=== PATIENT | male | born 1970 | race African-American/Black ===

== ENCOUNTER 2021-05-19 19:00 | Inpatient (IN) | payer OTHER ==
[~2021-05-19] VITALS: Ht 175.3 cm; Wt 89.4 kg
[2021-05-19 19:00] VITALS: BP 126/78
[2021-05-19 19:10] VITALS: BP 139/71
[2021-05-19] MEDS ORDERED: HYDR-2145 PO (19:43)
[2021-05-19] MEDS ORDERED: AMLO-187 PO (19:43)
[2021-05-19] MEDS ORDERED: guaiFENesin DM 200MG/20MG 10 ML SYRUP PO PRN (20:00)
[2021-05-19] MEDS ORDERED: ACETAMINOPHEN 325 MG TABLET. PO PRN (20:00)
[2021-05-19 21:01] LABS: CALCIUM 8.2 mg/dL (8.5-10.1); CREATININE 1.9 mg/dL (0.7-1.3); GFR 37.9; POTASSIUM 4.3 mmol/L (3.5-5.1)
[2021-05-19 21:07] LABS: ALBUMIN 2.8 g/dL (3.4-5.0); ALBUMIN/GLOBULIN RATIO 0.6 (1.0-1.7); TOTAL BILIRUBIN 0.4 mg/dL (0.2-1.0); TOTAL PROTEIN 7.2 g/dL (6.4-8.2)
[2021-05-19] MEDS ORDERED: IV NORMAL SALINE 1000ML BAG 1,000 ML IV SCH (21:15)
[2021-05-19] MEDS: BENZONATATE 100 MG CAPSULE. PO SCH (21:44)
[2021-05-19] MEDS ORDERED: REMDESIVIR LOAD in IV NORMAL SALINE 250ML TV IV ONE (22:00)
[2021-05-19] MEDS: HEPARIN for SUB-Q USE 5,000 UNIT/ML VIAL. SQ SCH (22:30)
[2021-05-19 23:00] VITALS: BP 122/75
[2021-05-20 03:00] VITALS: BP 131/79
[2021-05-20] MEDS: HEPARIN for SUB-Q USE 5,000 UNIT/ML VIAL. SQ SCH ×3 (05:40→20:48)
[2021-05-20 07:00] VITALS: BP 139/83
[2021-05-20 07:34] LABS: BASO % 0 % (0-3); EOS % 0 % (0-3); HEMATOCRIT 41.3 % (39.0-53.0); HEMOGLOBIN 13.5 g/dL (13.0-17.5); LYMPH # 0.6 x10^3/uL (1.0-4.8); LYMPH % 13 % (24-48); MEAN CORPUSCULAR HEMOGLOBIN 28 pg (25-35); MEAN CORPUSCULAR HGB CONC 33 g/dL (31-37); MEAN CORPUSCULAR VOLUME 85 fL (79-100); MONO # 0.9 x10^3/uL (0.0-1.1); MONO % 19 % (0-9); NEUT # 3.4 x10^3/uL (1.8-7.7); NEUT % 69 % (31-73); PLATELET COUNT 221 x10^3/uL (140-400); RED BLOOD COUNT 4.84 x10^6/uL (4.30-5.70); RED CELL DISTRIBUTION WIDTH 13.8 % (11.5-14.5); WHITE BLOOD COUNT 4.9 x10^3/uL (4.0-11.0)
--- NOTE | 2021-05-20 07:54 | PDOC1 ---
History and Physical Date of Admission Date of Admission DATE: 05/20/21 TIME: 07:52 Identification/Chief Complaint Chief Complaint Shortness of breath Source Source: Patient History of Present Illness History of Present Illness Mr Yadav is a 51-year-old male w/ PMHx HTN who presented to [facility] in [place], [place] for progressive shortness of breath, cough and dyspnea on exertion. He tested positive for Covid 19 on 05/11/2021 after experiencing a cough and shortness of breath. He works for [employer], does not know about any known exposures. Symptoms were as above and for 7 days was staying at home on quarantine but his became concerned due to worsening dyspnea and feelings of weakness and malaise with loss of appetite. Vitals obtained concerning for hypoxia 73% on room air, tachypnea and tachycardia Supplemental oxygen provided, patient continuing to require 6 L oxygen via nasal cannula to maintain saturations greater than 90% IV antibiotics and IV dexamethasone administered WBC 6.6, Hb 14.3, platelets 207, NA 140, K4, BUN 33, CR 2.1, glucose 102, calcium 8.7, lactate 1.2, bilirubin 0.6, AST 39, ALT 27, alkaline phosphatase 51, troponin 0, albumin 3.4 chest radiograph with hazy and patchy airspace disease throughout bilateral lungs, suspicious for viral or atypical pneumonia. CTPA had suboptimal contrast bolus, no PE noted. Bilateral parenchymal opacities as well as mediastinal and hilar lymphadenopathy. EKG ordered and interpreted by myself at 1118 hrs. as sinus rhythm at 98 bpm, unremarkable intervals, no axis deviation, T wave inversion noted in lead aVF otherwise no concerning findings, no STEMI Attempts were made to admit patient to [facility] for ICU status but this request was declined by hospitalist. Transferred to [facility] for further care. Past Medical History Cardiovascular: HTN Past Surgical History Past Surgical History: No pertinent history Family History Family History: Hypertension Social History Smoke: No ALCOHOL: none Drugs: None Current Medications Current Medications Current Medications Acetaminophen (Tylenol) 650 mg PRN Q6HRS PRN PO MILD PAIN / TEMP > 100.3'F; Start 05/19/21 at 20:00 Ondansetron HCl (Zofran) 4 mg PRN Q4HRS PRN IVP NAUSEA/VOMITING; Start 05/19/21 at 20:00 Zinc Sulfate (Orazinc) 220 mg DAILY PO ; Start 05/20/21 at 09:00 Thiamine Mononitrate (Vitamin B-1) 100 mg DAILY PO ; Start 05/20/21 at 09:00 Ascorbic Acid (Vitamin C) 1,000 mg DAILY PO ; Start 05/20/21 at 09:00 Guaifenesin (Robitussin Dm) 10 ml PRN Q4HRS PRN PO COUGH; Start 05/19/21 at 20:00 Benzonatate (Tessalon Perle) 100 mg [id number] PO Last administered on 05/19/21at 21:44; Start 05/19/21 at 21:00 Remdesivir 200 mg/ Sodium Chloride 210 ml @ 210 mls/hr 1X ONCE IV Last administered on 05/19/21at 21:43; Start 05/19/21 at 22:00; Stop 05/19/21 at 22:59; Status DC Remdesivir 100 mg/ Sodium Chloride 230 ml @ 460 mls/hr Q24H IV ; Start 05/20/21 at 22:00; Stop 05/23/21 at 22:29 Amlodipine Besylate (Norvasc) 10 mg DAILY PO ; Start 05/20/21 at 09:00 Sodium Chloride 1,000 ml @ 100 mls/hr Q10H IV Last administered on 05/19/21at 21:44; Start 05/19/21 at 21:15; Stop 05/20/21 at 07:14; Status DC Heparin Sodium (Porcine) (Heparin Sodium) 5,000 unit Q8HRS SQ Last administered on 05/20/21at 05:40; Start 05/19/21 at 22:00 Active Scripts Active Reported Hydrochlorothiazide Tablet (Hydrochlorothiazide) 25 Mg Tablet 25 Mg PO DAILY Amlodipine Besylate 10 Mg Tablet 10 Mg PO DAILY Allergies Allergies: Coded Allergies: No Known Drug Allergies (Unverified , 05/19/21) ROS General: YES: Fatigue, Malaise; No: Chills, Night Sweats, Appetite, Other PSYCHOLOGICAL ROS: No: Anxiety, Behavioral Disorder, Concentration difficultie, Decreased libido, Depression, Disorientation, Hallucinations, Hostility, Irritablity, Memory difficulties, Mood Swings, Obsessive thoughts, Physical abuse, Sexual abuse, Sleep disturbances, Suicidal ideation, Other Eyes: No Blurry vision, No Decreased vision, No Double vision, No Dry eyes, No Excessive tearing, No Eye Pain, No Itchy Eyes, No Loss of vision, No Photophobia, No Scotomata, No Uses contacts, No Uses glasses, No Other HEENT: No: Heacaches, Visual Changes, Hearing change, Nasal congestion, Nasal discharge, Oral lesions, Sinus pain, Sore Throat, Epistaxis, Sneezing, Snoring, Tinnitus, Vertigo, Vocal changes, Other ALLERGY AND IMMUNOLOGY: No: Hives, Insect Bite Sensitivity, Itchy/Watery Eyes, Nasal Congestion, Post Nasal Drip, Seasonal Allergies, Other Hematological and Lymphatic: No: Bleeding Problems, Blood Clots, Blood Transfusions, Brusing, Night Sweats, Pallor, Swollen Lymph Nodes, Other ENDOCRINE: No: Breast Changes, Galactorrhea, Hair Pattern Changes, Hot Flashes, Malaise/lethargy, Mood Swings, Palpitations, Polydipsia/polyuria, Skin Changes, Temperature Intolerance, Unexpected Weight Changes, Other Breast: No New/Changing Breast Lumps, No Nipple changes, No Nipple discharge, No Other Respiratory: YES: Cough, Shortness of breath, SOB with excertion; No: Hemoptysis, Orthopnea, Pleuritic Pain, Sputum Changes, Stridor, Tachypnea, Wheezing, Other Cardiovascular: No Chest Pain, No Palpitations, No Orthopnea, No Paroxysmal Noc. Dyspnea, No Edema, No Lt Headedness, No Other Gastrointestinal: Yes Diarrhea; No Nausea, No Vomiting, No Abdominal Pain, No Constipation, No Melena, No Hematochezia, No Other Genitourinary: No Dysuria, No Frequency, No Incontinence, No Hematuria, No Retention, No Discharge, No Urgency, No Pain, No Flank Pain, No Other, No , No , No , No , No , No , No Musculoskeletal: No Gait Disturbance, No Joint Pain, No Joint Stiffness, No Joint Swelling, No Muscle Pain, No Muscular Weakness, No Pain In:, No Swelling In:, No Other Neurological: No Behavorial Changes, No Bowel/Bladder ControlChng, No Confusion, No Dizziness, No Gait Disturbance, No Headaches, No Impaired Coord/balance, No Memory Loss, No Numbness/Tingling, No Seizures, No Speech Problems, No Tremors, No Visual Changes, No Weakness, No Other Skin: No Dry Skin, No Eczema, No Hair Changes, No Lumps, No Mole Changes, No Mottling, No Nail Changes, No Pruritus, No Rash, No Skin Lesion Changes, No Other, No Acne Physical Exam General: Alert, Oriented X3, Cooperative, mild distress HEENT: Atraumatic, PERRLA, EOMI, Mucous membr. moist/pink Lungs: Clear to auscultation, Other Heart: S1S2, RRR, no thrills, no rubs, no gallops, no murmurs Abdomen: Normal bowel sounds, Soft, No tenderness, No hepatosplenomegaly, No masses Rectal Exam: not examined Extremities: No clubbing, No cyanosis, No edema, Normal pulses, No tenderness/swelling Skin: No rashes, No breakdown, No significant lesion Neuro: Normal gait, Normal speech, Strength at 5/5 X4 ext, Normal tone, Sensation intact, Cranial nerves 3-12 NL, Reflexes 2+ Psych/Mental Status: Mental status NL, Mood NL Vitals Vitals Vital Signs Date Time Temp Pulse Resp B/P (MAP) Pulse Ox O2 Delivery O2 Flow Rate FiO2 05/20/21 03:00 97.9 84 16 131/79 (96) 93 97.9 05/19/21 20:00 Nasal Cannula 6.0 Labs Labs Laboratory Tests Test 05/19/21 20:30 05/20/21 05:45 Sodium Level 139 mmol/L (136-145) Potassium Level 4.3 mmol/L (3.5-5.1) Chloride Level 102 mmol/L (98-107) Carbon Dioxide Level 30 mmol/L (21-32) Anion Gap 7 (6-14) Blood Urea Nitrogen 24 mg/dL (8-26) Creatinine 1.9 mg/dL (0.7-1.3) Estimated GFR (Cockcroft-Gault) 37.9 BUN/Creatinine Ratio 13 (6-20) Glucose Level 145 mg/dL (70-99) Calcium Level 8.2 mg/dL (8.5-10.1) Total Bilirubin 0.4 mg/dL (0.2-1.0) Aspartate Amino Transf (AST/SGOT) 35 U/L (15-37) Alanine Aminotransferase (ALT/SGPT) 26 U/L (16-63) Alkaline Phosphatase 48 U/L (46-116) C-Reactive Protein, Quantitative 177.5 mg/L (0-3.3) Total Protein 7.2 g/dL (6.4-8.2) Albumin 2.8 g/dL (3.4-5.0) Albumin/Globulin Ratio 0.6 (1.0-1.7) White Blood Count 4.9 x10^3/uL (4.0-11.0) Red Blood Count 4.84 x10^6/uL (4.30-5.70) Hemoglobin 13.5 g/dL (13.0-17.5) Hematocrit 41.3 % (39.0-53.0) Mean Corpuscular Volume 85 fL (79-100) Mean Corpuscular Hemoglobin 28 pg (25-35) Mean Corpuscular Hemoglobin Concent 33 g/dL (31-37) Red Cell Distribution Width 13.8 % (11.5-14.5) Platelet Count 221 x10^3/uL (140-400) Neutrophils (%) (Auto) 69 % (31-73) Lymphocytes (%) (Auto) 13 % (24-48) Monocytes (%) (Auto) 19 % (0-9) Eosinophils (%) (Auto) 0 % (0-3) Basophils (%) (Auto) 0 % (0-3) Neutrophils # (Auto) 3.4 x10^3/uL (1.8-7.7) Lymphocytes # (Auto) 0.6 x10^3/uL (1.0-4.8) Monocytes # (Auto) 0.9 x10^3/uL (0.0-1.1) Eosinophils # (Auto) 0.0 x10^3/uL (0.0-0.7) Basophils # (Auto) 0.0 x10^3/uL (0.0-0.2) Laboratory Tests Test 05/19/21 20:30 05/20/21 05:45 Sodium Level 139 mmol/L (136-145) Potassium Level 4.3 mmol/L (3.5-5.1) Chloride Level 102 mmol/L (98-107) Carbon Dioxide Level 30 mmol/L (21-32) Anion Gap 7 (6-14) Blood Urea Nitrogen 24 mg/dL (8-26) Creatinine 1.9 mg/dL (0.7-1.3) Estimated GFR (Cockcroft-Gault) 37.9 BUN/Creatinine Ratio 13 (6-20) Glucose Level 145 mg/dL (70-99) Calcium Level 8.2 mg/dL (8.5-10.1) Total Bilirubin 0.4 mg/dL (0.2-1.0) Aspartate Amino Transf (AST/SGOT) 35 U/L (15-37) Alanine Aminotransferase (ALT/SGPT) 26 U/L (16-63) Alkaline Phosphatase 48 U/L (46-116) C-Reactive Protein, Quantitative 177.5 mg/L (0-3.3) Total Protein 7.2 g/dL (6.4-8.2) Albumin 2.8 g/dL (3.4-5.0) Albumin/Globulin Ratio 0.6 (1.0-1.7) White Blood Count 4.9 x10^3/uL (4.0-11.0) Red Blood Count 4.84 x10^6/uL (4.30-5.70) Hemoglobin 13.5 g/dL (13.0-17.5) Hematocrit 41.3 % (39.0-53.0) Mean Corpuscular Volume 85 fL (79-100) Mean Corpuscular Hemoglobin 28 pg (25-35) Mean Corpuscular Hemoglobin Concent 33 g/dL (31-37) Red Cell Distribution Width 13.8 % (11.5-14.5) Platelet Count 221 x10^3/uL (140-400) Neutrophils (%) (Auto) 69 % (31-73) Lymphocytes (%) (Auto) 13 % (24-48) Monocytes (%) (Auto) 19 % (0-9) Eosinophils (%) (Auto) 0 % (0-3) Basophils (%) (Auto) 0 % (0-3) Neutrophils # (Auto) 3.4 x10^3/uL (1.8-7.7) Lymphocytes # (Auto) 0.6 x10^3/uL (1.0-4.8) Monocytes # (Auto) 0.9 x10^3/uL (0.0-1.1) Eosinophils # (Auto) 0.0 x10^3/uL (0.0-0.7) Basophils # (Auto) 0.0 x10^3/uL (0.0-0.2) Images Images Chest radiograph: Cardiomediastinal Silhouette: Prominent cardiac silhouette, likely accentuated by AP technique and low lung volumes. Lungs and Pleura: Bilateral hazy and patchy opacities throughout the lungs. No evidence of pleural effusion or pneumothorax. Bones and Soft Tissues: No acute osseous abnormality. IMPRESSION: Hazy and patchy airspace disease throughout bilateral lungs, suspicious for viral or atypical pneumonia. CT chest with contrast - pulmonary embolus protocol CHEST: Diagnostic quality: Suboptimal contrast bolus. Pulmonary emboli: No pulmonary emboli to the level of the segmental branches. More peripheral vessels are not well assessed. Right heart strain: None Pulmonary arteries: Normal in caliber. Heart is not enlarged. No pericardial effusion. No pleural effusion. No pneumothorax. Bilateral parenchymal airspace opacities are seen including solid and groundglass opacities particularly peripherally. Enlarged mediastinal and hilar lymph nodes are seen. No axillary lymphadenopathy. Visualized Upper abdomen: Unremarkable Bones: No aggressive osseous lesion is seen. IMPRESSION: 1. Suboptimal contrast bolus. Within these constraints, no pulmonary embolus to the level of the proximal subsegmental branches. More peripheral vessels are not well assessed. 2. Bilateral parenchymal opacities likely from infectious/inflammatory process including viral pneumonia. Imaging follow-up to resolution is recommended to exclude underlying mass. 3. Mediastinal and hilar lymphadenopathy is likely reactive. Recommend close attention on follow-up. VTE Prophylaxis Ordered VTE Prophylaxis Devices: Yes VTE Pharmacological Prophylaxi: Yes Assessment/Plan Assessment/Plan A/P: COVID-19 - Severe case, on remdesivir, decadron, O2 supportive care. Check CRP, LFTs for baricitinib or tocilizumab criteria (no tocilizumab available currently) Acute respiratory failure with hypoxia - due to COVID 19, treatment as above. add IS and albuterol MDI AMEYA - likely vasomotor nephropathy from COVID 19 SIRS - HR and RR elevated consistent with sepsis due to COVID 19, given fluids and antivirals HTN - hold HCTZ for AMEYA, cont amlodipine FEN - General diet PPX - lovenox FULL CODE Dispo - inpatient Justifications for Admission General Conditions Poss Metaboilic Acidosis?: Yes Justification for admission: Patient has tachycardia (> 100 beats per minute) or hypotension (SBP < 90 mm Hg) leading to inadequate systemic perfusion as indicated by metabolic acidosis with arterial pH of less than 7.35. Other Justification DAYSI JORDAN MD May 20, 2021 07:54
[2021-05-20 08:06] LABS: ALBUMIN 2.6 g/dL (3.4-5.0); ALBUMIN/GLOBULIN RATIO 0.6 (1.0-1.7); CREATININE 1.6 mg/dL (0.7-1.3); GFR 55.9; POTASSIUM 4.3 mmol/L (3.5-5.1); TOTAL BILIRUBIN 0.4 mg/dL (0.2-1.0); TOTAL PROTEIN 6.9 g/dL (6.4-8.2)
[2021-05-20] MEDS: BENZONATATE 100 MG CAPSULE. PO SCH ×3 (09:26→20:48)
[2021-05-20] MEDS: ZINC SULFATE 220 MG CAPSULE. PO SCH (09:26)
[2021-05-20] MEDS: THIAMINE 100 MG TABLET. PO SCH (09:26)
[2021-05-20] MEDS: ASCORBIC ACID 1,000 MG TABLET PO SCH (09:26)
[2021-05-20 09:56] LABS: % EOS 1 % (0-5); % LYMPHS 10 % (24-48); % MONOS 17 % (0-10); % SEGS 72 % (35-66)
[2021-05-20 09:57] LABS: PLT ESTIMATE ADEQUATE (ADEQUATE)
[2021-05-20 11:00] VITALS: BP 141/77
[2021-05-20] MEDS: DEXAMETHASONE SOD PHOS 4 MG/ML VIAL IVP SCH (14:28)
[2021-05-20 15:00] VITALS: BP 135/79
[2021-05-20] MEDS ORDERED: ALBUTEROL SULFATE 8GM INHALER. INH PRN ×2 (15:30)
[2021-05-20 20:08] VITALS: BP 131/79
[2021-05-20] MEDS: REMDESIVIR 100mg in NORMAL SALINE 250ML X 4 DAYS IV SCH (20:47)
[2021-05-20] MEDS: ONDANSETRON PF 4 MG/2 ML VIAL. IVP PRN (21:56)
[2021-05-20 23:20] VITALS: BP 129/79
[2021-05-21 03:55] VITALS: BP_SYST 127
[2021-05-21 05:56] LABS: HEMOGLOBIN A1C 6.3 % (4.8-5.6)
[2021-05-21] MEDS: HEPARIN for SUB-Q USE 5,000 UNIT/ML VIAL. SQ SCH ×3 (06:01→21:30)
[2021-05-21 07:00] VITALS: BP 125/79
[2021-05-21 08:03] LABS: BASO % 0 % (0-3); EOS % 0 % (0-3); HEMATOCRIT 43.3 % (39.0-53.0); HEMOGLOBIN 14.2 g/dL (13.0-17.5); LYMPH # 0.8 x10^3/uL (1.0-4.8); LYMPH % 12 % (24-48); MEAN CORPUSCULAR HEMOGLOBIN 28 pg (25-35); MEAN CORPUSCULAR HGB CONC 33 g/dL (31-37); MEAN CORPUSCULAR VOLUME 85 fL (79-100); MONO # 1.1 x10^3/uL (0.0-1.1); MONO % 17 % (0-9); NEUT # 4.7 x10^3/uL (1.8-7.7); NEUT % 72 % (31-73); PLATELET COUNT 285 x10^3/uL (140-400); RED BLOOD COUNT 5.09 x10^6/uL (4.30-5.70); RED CELL DISTRIBUTION WIDTH 13.7 % (11.5-14.5); WHITE BLOOD COUNT 6.6 x10^3/uL (4.0-11.0)
--- NOTE | 2021-05-21 08:17 | PDOC ---
[employer] PROGRESS NOTE Date of Service DOS: DATE: 05/21/21 TIME: 08:06 Chief Complaint Chief Complaint A/P: COVID-19 - Severe case, on remdesivir, decadron, O2 supportive care. Check CRP, LFTs for baricitinib or tocilizumab criteria (no tocilizumab available currently) Acute respiratory failure with hypoxia - due to COVID 19, treatment as above. add IS and albuterol MDI AMEYA - likely vasomotor nephropathy from COVID 19 SIRS - HR and RR elevated consistent with sepsis due to COVID 19, given fluids and antivirals HTN - hold HCTZ for AMEYA, cont amlodipine FEN - General diet PPX - lovenox FULL CODE Dispo - inpatient History of Present Illness History of Present Illness Mr Yadav is a 51-year-old male w/ PMHx HTN who presented to [facility] in [place], [place] for progressive shortness of breath, cough and dyspnea on exertion. He tested positive for Covid 19 on 05/11/2021 after experiencing a coug h and shortness of breath. He works for [employer], does not know about any known exposures. Symptoms were as above and for 7 days was staying at home on quarantine but his became concerned due to worsening dyspnea and feelings of weakness and malaise with loss of appetite. Vitals obtained concerning for hypoxia 73% on room air, tachypnea and tachycardia Supplemental oxygen provided, patient continuing to require 6 L oxygen via nasal cannula to maintain saturations greater than 90% IV antibiotics and IV dexamethasone administered WBC 6.6, Hb 14.3, platelets 207, NA 140, K4, BUN 33, CR 2.1, glucose 102, calcium 8.7, lactate 1.2, bilirubin 0.6, AST 39, ALT 27, alkaline phosphatase 51, troponin 0, albumin 3.4 chest radiograph with hazy and patchy airspace disease throughout bilateral lungs, suspicious for viral or atypical pneumonia. CTPA had suboptimal contrast bolus, no PE noted. Bilateral parenchymal opacities as well as mediastinal and hilar lymphadenopathy. EKG ordered and interpreted by myself at 1118 hrs. as sinus rhythm at 98 bpm, unremarkable intervals, no axis deviation, T wave inversion noted in lead aVF otherwise no concerning findings, no STEMI Attempts were made to admit patient to [facility] for ICU status but this request was declined by hospitalist. Transferred to [facility] for further care. Afebrile overnight. Creatinine improved to 1.6. Symptomatically having diarrhea and some nausea otherwise has a good appetite. HbA1c returned 6.3. O2 requirements increased to 9 L/min with O2 saturations 91%. He strenuously requesting to leave advised the his O2 needs are far too high for this to be accommodated. With creatinine and transaminase elevation he is not a candidate for Tocilizumab or baricitinib. We will continue daily labs and wean O2 as tolerated. Continue standard COVID-19 treatment with Decadron and remdesivir. Vitals/I&O Vitals/I&O: Vital Signs Date Time Temp Pulse Resp B/P (MAP) Pulse Ox O2 Delivery O2 Flow Rate FiO2 05/21/21 07:00 98.2 77 20 125/79 (94) 94 Nasal Cannula 10.0 98.2 I & O 05/20/21 05/20/21 05/21/21 15:00 23:00 07:00 Intake Total 240 ml 320 ml 180 ml Balance 240 ml 320 ml 180 ml Physical Exam General: Alert, Oriented X3, Cooperative, mild distress Abdomen: Normal bowel sounds, Soft, No tenderness, No hepatosplenomegaly, No masses Extremities: No clubbing, No cyanosis, No edema, Normal pulses, No tenderness/swelling Skin: No rashes, No breakdown, No significant lesion Comment Review of Relevant I have reviewed the following items gisela (where applicable) has been applied. Medications: Current Medications Medications (Trade) Dose Ordered Sig/Joy Route PRN Reason Start Time Stop Time Status Last Admin Dose Admin Zinc Sulfate (Orazinc) 220 mg DAILY PO 05/20/21 09:00 05/20/21 09:26 Thiamine Mononitrate (Vitamin B-1) 100 mg DAILY PO 05/20/21 09:00 05/20/21 09:26 Ascorbic Acid (Vitamin C) 1,000 mg DAILY PO 05/20/21 09:00 05/20/21 09:26 Remdesivir 100 mg/ Sodium Chloride 230 ml @ 460 mls/hr Q24H IV 05/20/21 22:00 05/23/21 22:29 05/20/21 20:47 Amlodipine Besylate (Norvasc) 10 mg DAILY PO 05/20/21 09:00 05/20/21 09:26 Dexamethasone Sodium Phosphate (Decadron) 6 mg DAILY IVP 05/20/21 14:00 05/29/21 13:59 05/20/21 14:28 Justifications for Admission General Conditions Poss Metaboilic Acidosis?: Yes Justification for admission: Patient has tachycardia (> 100 beats per minute) or hypotension (SBP < 90 mm Hg) leading to inadequate systemic perfusion as indicated by metabolic acidosis with arterial pH of less than 7.35. Other Justification DAYSI JORDAN MD May 21, 2021 08:17
[2021-05-21 08:18] LABS: ALBUMIN 2.6 g/dL (3.4-5.0); ALBUMIN/GLOBULIN RATIO 0.6 (1.0-1.7); CALCIUM 8.4 mg/dL (8.5-10.1); CREATININE 1.5 mg/dL (0.7-1.3); GFR 60.2; POTASSIUM 4.6 mmol/L (3.5-5.1); TOTAL BILIRUBIN 0.4 mg/dL (0.2-1.0)
[2021-05-21] MEDS: THIAMINE 100 MG TABLET. PO SCH (09:36)
[2021-05-21] MEDS: ASCORBIC ACID 1,000 MG TABLET PO SCH (09:36)
[2021-05-21] MEDS: ZINC SULFATE 220 MG CAPSULE. PO SCH (09:37)
[2021-05-21] MEDS: BENZONATATE 100 MG CAPSULE. PO SCH ×3 (09:38→21:33)
[2021-05-21] MEDS: DEXAMETHASONE SOD PHOS 4 MG/ML VIAL IVP SCH (09:38)
[2021-05-21 11:00] VITALS: BP 144/54
[2021-05-21] MEDS: ONDANSETRON PF 4 MG/2 ML VIAL. IVP PRN ×2 (13:32→21:32)
[2021-05-21 15:32] VITALS: BP 146/85
[2021-05-21 19:00] VITALS: BP 134/84
[2021-05-21] MEDS: REMDESIVIR 100mg in NORMAL SALINE 250ML X 4 DAYS IV SCH (21:33)
[2021-05-21 23:20] VITALS: BP 129/82
[2021-05-22 03:11] VITALS: BP 138/82
[2021-05-22] MEDS: HEPARIN for SUB-Q USE 5,000 UNIT/ML VIAL. SQ SCH ×3 (05:47→21:01)
[2021-05-22] MEDS: ONDANSETRON PF 4 MG/2 ML VIAL. IVP PRN (05:48)
[2021-05-22 06:39] LABS: ALBUMIN 2.7 g/dL (3.4-5.0); ALBUMIN/GLOBULIN RATIO 0.6 (1.0-1.7); CALCIUM 8.7 mg/dL (8.5-10.1); CREATININE 1.5 mg/dL (0.7-1.3); GFR 60.2; POTASSIUM 4.6 mmol/L (3.5-5.1); TOTAL BILIRUBIN 0.5 mg/dL (0.2-1.0)
[2021-05-22 07:00] VITALS: BP 146/78
[2021-05-22 07:11] LABS: BASO % 0 % (0-3); EOS % 0 % (0-3); HEMATOCRIT 44.1 % (39.0-53.0); HEMOGLOBIN 14.2 g/dL (13.0-17.5); LYMPH # 0.9 x10^3/uL (1.0-4.8); LYMPH % 11 % (24-48); MEAN CORPUSCULAR HEMOGLOBIN 28 pg (25-35); MEAN CORPUSCULAR HGB CONC 32 g/dL (31-37); MEAN CORPUSCULAR VOLUME 86 fL (79-100); MONO # 1.9 x10^3/uL (0.0-1.1); MONO % 21 % (0-9); NEUT % 68 % (31-73); PLATELET COUNT 356 x10^3/uL (140-400); RED BLOOD COUNT 5.11 x10^6/uL (4.30-5.70); RED CELL DISTRIBUTION WIDTH 13.9 % (11.5-14.5); WHITE BLOOD COUNT 8.8 x10^3/uL (4.0-11.0)
[2021-05-22] MEDS: ZINC SULFATE 220 MG CAPSULE. PO SCH (08:33)
[2021-05-22] MEDS: BENZONATATE 100 MG CAPSULE. PO SCH ×3 (08:33→21:00)
[2021-05-22] MEDS: THIAMINE 100 MG TABLET. PO SCH (08:33)
[2021-05-22] MEDS: ASCORBIC ACID 1,000 MG TABLET PO SCH (08:33)
[2021-05-22] MEDS: DEXAMETHASONE SOD PHOS 4 MG/ML VIAL IVP SCH (08:33)
[2021-05-22] MEDS ORDERED: guaiFENesin/CODEINE 100mg/10mg 5 ML LIQUID PO PRN (08:45)
[2021-05-22 11:00] VITALS: BP 129/64
--- NOTE | 2021-05-22 11:09 | RAD ---
Single view of the chest. 05/22/2021 10:05 AM Indication: Reason: increasing O2 requirement / Spl. Instructions: / History: Comparison: None Findings: Lung volumes are low. No pneumothorax or pleural effusion is seen. The right hemidiaphragm is elevated with respect to the contralateral side. No acute osseous changes are identified. No focal infiltrates are seen. Heart size is within normal limits given technique. IMPRESSION: Low lung volumes. No other acute cardiopulmonary process is identified. Consider follow-u p two-view chest radiograph as clinically indicated Electronically signed by: Jose Miguel Odonnell MD (05/22/2021 11:07 AM) [id number]
--- NOTE | 2021-05-22 11:57 | PDOC ---
[employer] PROGRESS NOTE Date of Service DOS: DATE: 05/22/21 TIME: 11:54 Chief Complaint Chief Complaint A/P: COVID-19 - Severe case, on remdesivir, decadron, O2 supportive care. Check CRP, LFTs for baricitinib or tocilizumab criteria (no tocilizumab available currently) Acute respiratory failure with hypoxia - due to COVID 19, treatment as above. add IS and albuterol MDI AMEYA - likely vasomotor nephropathy from COVID 19 SIRS - HR and RR elevated consistent with sepsis due to COVID 19, given fluids and antivirals HTN - hold HCTZ for AMEYA, cont amlodipine FEN - General diet PPX - lovenox FULL CODE Dispo - inpatient History of Present Illness History of Present Illness Mr Yadav is a 51-year-old male w/ PMHx HTN who presented to [facility] in [place], [place] for progressive shortness of breath, cough and dyspnea on exertion. He tested positive for Covid 19 on 05/11/2021 after experiencing a coug h and shortness of breath. He works for [employer], does not know about any known exposures. Symptoms were as above and for 7 days was staying at home on quarantine but his became concerned due to worsening dyspnea and feelings of weakness and malaise with loss of appetite. Vitals obtained concerning for hypoxia 73% on room air, tachypnea and tachycardia Supplemental oxygen provided, patient continuing to require 6 L oxygen via nasal cannula to maintain saturations greater than 90% IV antibiotics and IV dexamethasone administered WBC 6.6, Hb 14.3, platelets 207, NA 140, K4, BUN 33, CR 2.1, glucose 102, calcium 8.7, lactate 1.2, bilirubin 0.6, AST 39, ALT 27, alkaline phosphatase 51, troponin 0, albumin 3.4 chest radiograph with hazy and patchy airspace disease throughout bilateral lungs, suspicious for viral or atypical pneumonia. CTPA had suboptimal contrast bolus, no PE noted. Bilateral parenchymal opacities as well as mediastinal and hilar lymphadenopathy. EKG ordered and interpreted by myself at 1118 hrs. as sinus rhythm at 98 bpm, unremarkable intervals, no axis deviation, T wave inversion noted in lead aVF otherwise no concerning findings, no STEMI Attempts were made to admit patient to [facility] for ICU status but this request was declined by hospitalist. Transferred to [facility] for further care. Afebrile overnight. Creatinine improved to 1.6. Symptomatically having diarrhea and some nausea otherwise has a good appetite. HbA1c returned 6.3. O2 requirements increased to 9 L/min with O2 saturations 91%. He strenuously requesting to leave advised the his O2 needs are far too high for this to be accommodated. With creatinine and transaminase elevation he is not a candidate for Tocilizumab or baricitinib. We will continue daily labs and wean O2 as tolerated. Continue standard COVID-19 treatment with Decadron and remdesivir. 05/22 Patient evaluated and examined at bedside. He said he was doing well. Says he was not feeling very short of breath. Was at that time on 10 L nasal cannula was complaining for like he was fighting the oxygen.? He wanted to try seeing how he would do breathing on his own thus turned off his oxygen and he desaturated into the 70s pretty quickly. Turned his oxygen back on to 10 L and he was back saturating 92 within a few minutes. Will check into tocilizumab candidacy. Otherwise continue COVID treatment. Vitals/I&O Vitals/I&O: Vital Signs Date Time Temp Pulse Resp B/P (MAP) Pulse Ox O2 Delivery O2 Flow Rate FiO2 05/22/21 08:33 85 146/78 05/22/21 08:00 Nasal Cannula 12.0 05/22/21 07:00 98.3 28 91 98.3 I & O 05/21/21 05/21/21 05/22/21 15:00 23:00 07:00 Intake Total 240 ml 350 ml 360 ml Output Total 225 ml Balance 15 ml 350 ml 360 ml Physical Exam General: Alert, Oriented X3, Cooperative Heart: Regular rate, Normal S1, Normal S2 Lungs: Crackles Abdomen: Normal bowel sounds, Soft, No tenderness Extremities: No edema, Normal pulses, No tenderness/swelling Skin: No rashes, No significant lesion Labs Labs: Laboratory Tests Test 05/22/21 05:30 White Blood Count 8.8 x10^3/uL (4.0-11.0) Red Blood Count 5.11 x10^6/uL (4.30-5.70) Hemoglobin 14.2 g/dL (13.0-17.5) Hematocrit 44.1 % (39.0-53.0) Mean Corpuscular Volume 86 fL (79-100) Mean Corpuscular Hemoglobin 28 pg (25-35) Mean Corpuscular Hemoglobin Concent 32 g/dL (31-37) Red Cell Distribution Width 13.9 % (11.5-14.5) Platelet Count 356 x10^3/uL (140-400) Neutrophils (%) (Auto) 68 % (31-73) Lymphocytes (%) (Auto) 11 % (24-48) Monocytes (%) (Auto) 21 % (0-9) Eosinophils (%) (Auto) 0 % (0-3) Basophils (%) (Auto) 0 % (0-3) Neutrophils # (Auto) 6.0 x10^3/uL (1.8-7.7) Lymphocytes # (Auto) 0.9 x10^3/uL (1.0-4.8) Monocytes # (Auto) 1.9 x10^3/uL (0.0-1.1) Eosinophils # (Auto) 0.0 x10^3/uL (0.0-0.7) Basophils # (Auto) 0.0 x10^3/uL (0.0-0.2) Sodium Level 143 mmol/L (136-145) Potassium Level 4.6 mmol/L (3.5-5.1) Chloride Level 106 mmol/L (98-107) Carbon Dioxide Level 29 mmol/L (21-32) Anion Gap 8 (6-14) Blood Urea Nitrogen 26 mg/dL (8-26) Creatinine 1.5 mg/dL (0.7-1.3) Estimated GFR (Cockcroft-Gault) 60.2 BUN/Creatinine Ratio 17 (6-20) Glucose Level 112 mg/dL (70-99) Calcium Level 8.7 mg/dL (8.5-10.1) Total Bilirubin 0.5 mg/dL (0.2-1.0) Aspartate Amino Transf (AST/SGOT) 40 U/L (15-37) Alanine Aminotransferase (ALT/SGPT) 31 U/L (16-63) Alkaline Phosphatase 48 U/L (46-116) Total Protein 7.0 g/dL (6.4-8.2) Albumin 2.7 g/dL (3.4-5.0) Albumin/Globulin Ratio 0.6 (1.0-1.7) Comment Review of Relevant I have reviewed the following items gisela (where applicable) has been applied. Justifications for Admission General Conditions Poss Metaboilic Acidosis?: Yes Justification for admission: Patient has tachycardia (> 100 beats per minute) or hypotension (SBP < 90 mm Hg) leading to inadequate systemic perfusion as indicated by metabolic acidosis with arterial pH of less than 7.35. Other Justification DAYSI HAEMED MD May 22, 2021 11:57
--- NOTE | 2021-05-22 13:58 | NUR ---
SW following. Discussed with RN, pt from home, 12L (doesn't use oxygen at home), cardiac diet. COVID-19 positive. RN advised no SW needs at this time. SW will continue to follow.
[2021-05-22 15:00] VITALS: BP 152/82
[2021-05-22 19:00] VITALS: BP 121/69
[2021-05-22] MEDS: REMDESIVIR 100mg in NORMAL SALINE 250ML X 4 DAYS IV SCH (21:02)
[2021-05-22] MEDS ORDERED: SODIUM CHLORIDE 0.65% NASAL SPRAY 45ML BOTTLE. NS PRN (21:30)
[2021-05-22 23:00] VITALS: BP 127/79
[2021-05-23 03:00] VITALS: BP 136/85
[2021-05-23 04:13] LABS: BASO % 0 % (0-3); EOS % 0 % (0-3); HEMATOCRIT 42.1 % (39.0-53.0); LYMPH % 10 % (24-48); MEAN CORPUSCULAR HEMOGLOBIN 29 pg (25-35); MEAN CORPUSCULAR HGB CONC 33 g/dL (31-37); MEAN CORPUSCULAR VOLUME 86 fL (79-100); MONO # 1.9 x10^3/uL (0.0-1.1); MONO % 18 % (0-9); NEUT # 7.3 x10^3/uL (1.8-7.7); NEUT % 72 % (31-73); PLATELET COUNT 369 x10^3/uL (140-400); WHITE BLOOD COUNT 10.2 x10^3/uL (4.0-11.0)
[2021-05-23 04:38] LABS: ALBUMIN 2.5 g/dL (3.4-5.0); ALBUMIN/GLOBULIN RATIO 0.6 (1.0-1.7); CALCIUM 8.4 mg/dL (8.5-10.1); CREATININE 1.4 mg/dL (0.7-1.3); GFR 65.2; POTASSIUM 4.2 mmol/L (3.5-5.1); TOTAL BILIRUBIN 0.5 mg/dL (0.2-1.0); TOTAL PROTEIN 6.4 g/dL (6.4-8.2)
[2021-05-23] MEDS: HEPARIN for SUB-Q USE 5,000 UNIT/ML VIAL. SQ SCH ×3 (05:53→22:13)
[2021-05-23 07:00] VITALS: BP 133/73
[2021-05-23] MEDS: THIAMINE 100 MG TABLET. PO SCH (09:49)
[2021-05-23] MEDS: ASCORBIC ACID 1,000 MG TABLET PO SCH (09:49)
[2021-05-23] MEDS: BENZONATATE 100 MG CAPSULE. PO SCH ×3 (09:49→21:57)
[2021-05-23] MEDS: ZINC SULFATE 220 MG CAPSULE. PO SCH (09:49)
[2021-05-23] MEDS: DEXAMETHASONE SOD PHOS 4 MG/ML VIAL IVP SCH (09:50)
[2021-05-23 11:00] VITALS: BP 147/81
[2021-05-23 15:00] VITALS: BP 160/77
--- NOTE | 2021-05-23 15:06 | PDOC ---
[facility] PROGRESS NOTE Date of Service DOS: DATE: 05/23/21 TIME: 15:05 Chief Complaint Chief Complaint A/P: COVID-19 - Severe case, on remdesivir, decadron, O2 supportive care. Check CRP, LFTs for baricitinib or tocilizumab criteria (no tocilizumab available currently) Acute respiratory failure with hypoxia - due to COVID 19, treatment as above. add IS and albuterol MDI AMEYA - likely vasomotor nephropathy from COVID 19 SIRS - HR and RR elevated consistent with sepsis due to COVID 19, given fluids and antivirals HTN - hold HCTZ for AMEYA, cont amlodipine FEN - General diet PPX - lovenox FULL CODE Dispo - inpatient History of Present Illness History of Present Illness Mr Yadav is a 51-year-old male w/ PMHx HTN who presented to [facility] in [place], [place] for progressive shortness of breath, cough and dyspnea on exertion. He tested positive for Covid 19 on 05/11/2021 after experiencing a coug h and shortness of breath. He works for [employer], does not know about any known exposures. Symptoms were as above and for 7 days was staying at home on quarantine but his became concerned due to worsening dyspnea and feelings of weakness and malaise with loss of appetite. Vitals obtained concerning for hypoxia 73% on room air, tachypnea and tachycardia Supplemental oxygen provided, patient continuing to require 6 L oxygen via nasal cannula to maintain saturations greater than 90% IV antibiotics and IV dexamethasone administered WBC 6.6, Hb 14.3, platelets 207, NA 140, K4, BUN 33, CR 2.1, glucose 102, calcium 8.7, lactate 1.2, bilirubin 0.6, AST 39, ALT 27, alkaline phosphatase 51, troponin 0, albumin 3.4 chest radiograph with hazy and patchy airspace disease throughout bilateral lungs, suspicious for viral or atypical pneumonia. CTPA had suboptimal contrast bolus, no PE noted. Bilateral parenchymal opacities as well as mediastinal and hilar lymphadenopathy. EKG ordered and interpreted by myself at 1118 hrs. as sinus rhythm at 98 bpm, unremarkable intervals, no axis deviation, T wave inversion noted in lead aVF otherwise no concerning findings, no STEMI Attempts were made to admit patient to [facility] for ICU status but this request was declined by hospitalist. Transferred to [facility] for further care. Afebrile overnight. Creatinine improved to 1.6. Symptomatically having diarrhea and some nausea otherwise has a good appetite. HbA1c returned 6.3. O2 requirements increased to 9 L/min with O2 saturations 91%. He strenuously requesting to leave advised the his O2 needs are far too high for this to be accommodated. With creatinine and transaminase elevation he is not a candidate for Tocilizumab or baricitinib. We will continue daily labs and wean O2 as tolerated. Continue standard COVID-19 treatment with Decadron and remdesivir. 05/22 Patient evaluated and examined at bedside. He said he was doing well. Says he was not feeling very short of breath. Was at that time on 10 L nasal cannula was complaining for like he was fighting the oxygen.? He wanted to try seeing how he would do breathing on his own thus turned off his oxygen and he desaturated into the 70s pretty quickly. Turned his oxygen back on to 10 L and he was back saturating 92 within a few minutes. Will check into tocilizumab candidacy. Otherwise continue COVID treatment. 05/23 Patient evaluated examined at bedside. He remains on 12 L nasal cannula. Still endorses he really did not feel much short of breath but again desaturates easily when oxygen turned down. Continue with current Covid treatment. 1 more day of remdesivir. At least 5-6 more days of dexamethasone. Weaning oxygen as tolerated Vitals/I&O Vitals/I&O: Vital Signs Date Time Temp Pulse Resp B/P (MAP) Pulse Ox O2 Delivery O2 Flow Rate FiO2 05/23/21 11:00 98.4 76 29 147/81 (103) 90 98.4 05/23/21 08:30 Nasal Cannula 12.0 I & O 05/22/21 05/22/21 05/23/21 15:00 23:00 07:00 Intake Total 230 ml Output Total 300 ml 200 ml Balance -300 ml 30 ml Physical Exam General: Alert, Oriented X3, Cooperative Heart: Regular rate, Normal S1, Normal S2 Lungs: Crackles Abdomen: Normal bowel sounds, Soft, No tenderness Extremities: No edema, Normal pulses, No tenderness/swelling Skin: No significant lesion Labs Labs: Laboratory Tests Test 05/23/21 00:01 05/23/21 03:25 Glucose (Fingerstick) 91 mg/dL (70-99) White Blood Count 10.2 x10^3/uL (4.0-11.0) Red Blood Count 4.90 x10^6/uL (4.30-5.70) Hemoglobin 14.0 g/dL (13.0-17.5) Hematocrit 42.1 % (39.0-53.0) Mean Corpuscular Volume 86 fL (79-100) Mean Corpuscular Hemoglobin 29 pg (25-35) Mean Corpuscular Hemoglobin Concent 33 g/dL (31-37) Red Cell Distribution Width 14.0 % (11.5-14.5) Platelet Count 369 x10^3/uL (140-400) Neutrophils (%) (Auto) 72 % (31-73) Lymphocytes (%) (Auto) 10 % (24-48) Monocytes (%) (Auto) 18 % (0-9) Eosinophils (%) (Auto) 0 % (0-3) Basophils (%) (Auto) 0 % (0-3) Neutrophils # (Auto) 7.3 x10^3/uL (1.8-7.7) Lymphocytes # (Auto) 1.0 x10^3/uL (1.0-4.8) Monocytes # (Auto) 1.9 x10^3/uL (0.0-1.1) Eosinophils # (Auto) 0.0 x10^3/uL (0.0-0.7) Basophils # (Auto) 0.0 x10^3/uL (0.0-0.2) Sodium Level 141 mmol/L (136-145) Potassium Level 4.2 mmol/L (3.5-5.1) Chloride Level 106 mmol/L (98-107) Carbon Dioxide Level 29 mmol/L (21-32) Anion Gap 6 (6-14) Blood Urea Nitrogen 21 mg/dL (8-26) Creatinine 1.4 mg/dL (0.7-1.3) Estimated GFR (Cockcroft-Gault) 65.2 BUN/Creatinine Ratio 15 (6-20) Glucose Level 130 mg/dL (70-99) Calcium Level 8.4 mg/dL (8.5-10.1) Total Bilirubin 0.5 mg/dL (0.2-1.0) Aspartate Amino Transf (AST/SGOT) 60 U/L (15-37) Alanine Aminotransferase (ALT/SGPT) 53 U/L (16-63) Alkaline Phosphatase 49 U/L (46-116) Total Protein 6.4 g/dL (6.4-8.2) Albumin 2.5 g/dL (3.4-5.0) Albumin/Globulin Ratio 0.6 (1.0-1.7) Comment Review of Relevant I have reviewed the following items gisela (where applicable) has been applied. Medications: Current Medications Medications (Trade) Dose Ordered Sig/Joy Route PRN Reason Start Time Stop Time Status Last Admin Dose Admin Sodium Chloride (Saline Mist Nasal) 1 pritesh PRN Q1HR PRN NS NASAL CONGESTION 05/22/21 21:30 05/22/21 21:37 Justifications for Admission General Conditions Poss Metaboilic Acidosis?: Yes Justification for admission: Patient has tachycardia (> 100 beats per minute) or hypotension (SBP < 90 mm Hg) leading to inadequate systemic perfusion as indicated by metabolic acidosis with arterial pH of less than 7.35. Other Justification DASYI HAMEED MD May 23, 2021 15:06
[2021-05-23 19:00] VITALS: BP 136/70
[2021-05-23] MEDS: REMDESIVIR 100mg in NORMAL SALINE 250ML X 4 DAYS IV SCH (21:58)
[2021-05-23 23:00] VITALS: BP 137/81
[2021-05-24 03:00] VITALS: BP 137/81
[2021-05-24] MEDS: HEPARIN for SUB-Q USE 5,000 UNIT/ML VIAL. SQ SCH ×3 (04:59→21:15)
[2021-05-24 07:00] VITALS: BP 128/71
[2021-05-24] MEDS: THIAMINE 100 MG TABLET. PO SCH (08:49)
[2021-05-24] MEDS: ASCORBIC ACID 1,000 MG TABLET PO SCH (08:49)
[2021-05-24] MEDS: BENZONATATE 100 MG CAPSULE. PO SCH ×3 (08:49→21:15)
[2021-05-24] MEDS: ZINC SULFATE 220 MG CAPSULE. PO SCH (08:49)
[2021-05-24] MEDS: DEXAMETHASONE SOD PHOS 4 MG/ML VIAL IVP SCH (08:50)
--- NOTE | 2021-05-24 10:47 | PDOC ---
[facility] PROGRESS NOTE Date of Service DOS: DATE: 05/24/21 TIME: 10:45 Chief Complaint Chief Complaint A/P: COVID-19 - Severe case, finished remdesivir, decadron, O2 supportive care.) Acute respiratory failure with hypoxia - due to COVID 19, treatment as above. add IS and albuterol MDI AMEYA - likely vasomotor nephropathy from COVID 19 SIRS - HR and RR elevated consistent with sepsis due to COVID 19, given fluids and antivirals HTN - hold HCTZ for AMEYA, cont amlodipine FEN - General diet PPX - lovenox FULL CODE Dispo - inpatient History of Present Illness History of Present Illness Mr Yadav is a 51-year-old male w/ PMHx HTN who presented to [facility] in [place], [place] for progressive shortness of breath, cough and dyspnea on exertion. He tested positive for Covid 19 on 05/11/2021 after experiencing a cough and shortness of breath. He works for [employer], does not know about any known exposures. Symptoms were as above and for 7 days was staying at home on quarantine but his became concerned due to worsening dyspnea and feelings of weakness and malaise with loss of appetite. Vitals obtained concerning for hypoxia 73% on room air, tachypnea and tachycardia Supplemental oxygen provided, patient continuing to require 6 L oxygen via nasal cannula to maintain saturations greater than 90% IV antibiotics and IV dexamethasone administered WBC 6.6, Hb 14.3, platelets 207, NA 140, K4, BUN 33, CR 2.1, glucose 102, calcium 8.7, lactate 1.2, bilirubin 0.6, AST 39, ALT 27, alkaline phosphatase 51, troponin 0, albumin 3.4 chest radiograph with hazy and patchy airspace disease throughout bilateral lungs, suspicious for viral or atypical pneumonia. CTPA had suboptimal contrast bolus, no PE noted. Bilateral parenchymal opacities as well as mediastinal and hilar lymphadenopathy. EKG ordered and interpreted by myself at 1118 hrs. as sinus rhythm at 98 bpm, unremarkable intervals, no axis deviation, T wave inversion noted in lead aVF otherwise no concerning findings, no STEMI Attempts were made to admit patient to [facility] for ICU status but this request was declined by hospitalist. Transferred to [facility] for further care. Afebrile overnight. Creatinine improved to 1.6. Symptomatically having diarrhea and some nausea otherwise has a good appetite. HbA1c returned 6.3. O2 requirements increased to 9 L/min with O2 saturations 91%. He strenuously requesting to leave advised the his O2 needs are far too high for this to be accommodated. With creatinine and transaminase elevation he is not a candidate for Tocilizumab or baricitinib. We will continue daily labs and wean O2 as tolerated. Continue standard COVID-19 treatment with Decadron and remdesivir. 05/22 Patient evaluated and examined at bedside. He said he was doing well. Says he was not feeling very short of breath. Was at that time on 10 L nasal cannula was complaining for like he was fighting the oxygen.? He wanted to try seeing how he would do breathing on his own thus turned off his oxygen and he desaturated into the 70s pretty quickly. Turned his oxygen back on to 10 L and he was back saturating 92 within a few minutes. Will check into tocilizumab candidacy. Otherwise continue COVID treatment. 05/23 Patient evaluated examined at bedside. He remains on 12 L nasal cannula. Still endorses he really did not feel much short of breath but again desaturates easily when oxygen turned down. Continue with current Covid treatment. 1 more day of remdesivir. At least 5-6 more days of dexamethasone. Weaning oxygen as tolerated 05/24 Patient evaluated examined at bedside. He was resting in bed seems a bit discouraged with her entire situation. was able to turn oxygen from 11 to 8 L. While I remained on the unit he maintain oxygen saturations in the 90s. We will continue weaning as tolerated throughout today. Will order 6-minute walk for tomorrow morning in anticipation of possible discharge pending continued improvement in oxygen status. Vitals/I&O Vitals/I&O: Vital Signs Date Time Temp Pulse Resp B/P (MAP) Pulse Ox O2 Delivery O2 Flow Rate FiO2 05/24/21 08:54 73 128/71 05/24/21 08:30 Nasal Cannula 11.0 05/24/21 07:00 98.4 32 95 98.4 I & O 05/23/21 05/23/21 05/24/21 15:00 23:00 07:00 Intake Total 230 ml Output Total 550 ml 200 ml 500 ml Balance -550 ml 30 ml -500 ml Physical Exam General: Alert, Oriented X3, Cooperative Heart: Regular rate, Normal S1, Normal S2 Lungs: Crackles Abdomen: Normal bowel sounds, Soft, No tenderness Extremities: No edema, Normal pulses, No tenderness/swelling Skin: No significant lesion Comment Review of Relevant I have reviewed the following items gisela (where applicable) has been applied. Justifications for Admission General Conditions Poss Metaboilic Acidosis?: Yes Justification for admission: Patient has tachycardia (> 100 beats per minute) or hypotension (SBP < 90 mm Hg) leading to inadequate systemic perfusion as indicated by metabolic acidosis with arterial pH of less than 7.35. Other Justification DAYSI HAMEED MD May 24, 2021 10:47
[2021-05-24 11:00] VITALS: BP 123/62
[2021-05-24 15:00] VITALS: BP 129/67
[2021-05-24 19:10] VITALS: BP 125/73
[2021-05-24 23:10] VITALS: BP 116/67
[2021-05-25 03:00] VITALS: BP 115/70
[2021-05-25] MEDS: HEPARIN for SUB-Q USE 5,000 UNIT/ML VIAL. SQ SCH ×3 (05:38→21:17)
[2021-05-25 07:00] VITALS: BP 118/74
[2021-05-25] MEDS: THIAMINE 100 MG TABLET. PO SCH (09:58)
[2021-05-25] MEDS: ZINC SULFATE 220 MG CAPSULE. PO SCH (09:59)
[2021-05-25] MEDS: DEXAMETHASONE SOD PHOS 4 MG/ML VIAL IVP SCH (09:59)
[2021-05-25] MEDS: ASCORBIC ACID 1,000 MG TABLET PO SCH (09:59)
[2021-05-25] MEDS: BENZONATATE 100 MG CAPSULE. PO SCH ×3 (10:00→21:16)
[2021-05-25 11:00] VITALS: BP 120/74
--- NOTE | 2021-05-25 11:59 | NUR ---
SW following. Discussed with RN, 6 minute walk ordered for today - pt required too much oxygen to complete testing. SW will continue to follow.
--- NOTE | 2021-05-25 12:10 | PDOC ---
[facility] PROGRESS NOTE Date of Service DOS: DATE: 05/25/21 TIME: 12:08 Chief Complaint Chief Complaint A/P: COVID-19 - Severe case, finished remdesivir, decadron, O2 supportive care.) Acute respiratory failure with hypoxia - due to COVID 19, treatment as above. add IS and albuterol MDI AMEYA - likely vasomotor nephropathy from COVID 19 SIRS - HR and RR elevated consistent with sepsis due to COVID 19, given fluids and antivirals HTN - hold HCTZ for AMEYA, cont amlodipine FEN - General diet PPX - lovenox FULL CODE Dispo - inpatient History of Present Illness History of Present Illness Mr Yadav is a 51-year-old male w/ PMHx HTN who presented to [facility] in [place], [place] for progressive shortness of breath, cough and dyspnea on exertion. He tested positive for Covid 19 on 05/11/2021 after experiencing a cough and shortness of breath. He works for [employer], does not know about any known exposures. Symptoms were as above and for 7 days was staying at home on quarantine but his became concerned due to worsening dyspnea and feelings of weakness and malaise with loss of appetite. Vitals obtained concerning for hypoxia 73% on room air, tachypnea and tachycardia Supplemental oxygen provided, patient continuing to require 6 L oxygen via nasal cannula to maintain saturations greater than 90% IV antibiotics and IV dexamethasone administered WBC 6.6, Hb 14.3, platelets 207, NA 140, K4, BUN 33, CR 2.1, glucose 102, calcium 8.7, lactate 1.2, bilirubin 0.6, AST 39, ALT 27, alkaline phosphatase 51, troponin 0, albumin 3.4 chest radiograph with hazy and patchy airspace disease throughout bilateral lungs, suspicious for viral or atypical pneumonia. CTPA had suboptimal contrast bolus, no PE noted. Bilateral parenchymal opacities as well as mediastinal and hilar lymphadenopathy. EKG ordered and interpreted by myself at 1118 hrs. as sinus rhythm at 98 bpm, unremarkable intervals, no axis deviation, T wave inversion noted in lead aVF otherwise no concerning findings, no STEMI Attempts were made to admit patient to [facility] for ICU status but this request was declined by hospitalist. Transferred to [facility] for further care. Afebrile overnight. Creatinine improved to 1.6. Symptomatically having diarrhea and some nausea otherwise has a good appetite. HbA1c returned 6.3. O2 requirements increased to 9 L/min with O2 saturations 91%. He strenuously requesting to leave advised the his O2 needs are far too high for this to be accommodated. With creatinine and transaminase elevation he is not a candidate for Tocilizumab or baricitinib. We will continue daily labs and wean O2 as tolerated. Continue standard COVID-19 treatment with Decadron and remdesivir. 05/22 Patient evaluated and examined at bedside. He said he was doing well. Says he was not feeling very short of breath. Was at that time on 10 L nasal cannula was complaining for like he was fighting the oxygen.? He wanted to try seeing how he would do breathing on his own thus turned off his oxygen and he desaturated into the 70s pretty quickly. Turned his oxygen back on to 10 L and he was back saturating 92 within a few minutes. Will check into tocilizumab candidacy. Otherwise continue COVID treatment. 05/23 Patient evaluated examined at bedside. He remains on 12 L nasal cannula. Still endorses he really did not feel much short of breath but again desaturates easily when oxygen turned down. Continue with current Covid treatment. 1 more day of remdesivir. At least 5-6 more days of dexamethasone. Weaning oxygen as tolerated 05/24 Patient evaluated examined at bedside. He was resting in bed seems a bit discouraged with her entire situation. was able to turn oxygen from 11 to 8 L. While I remained on the unit he maintain oxygen saturations in the 90s. We will continue weaning as tolerated throughout today. Will order 6-minute walk for tomorrow morning in anticipation of possible discharge pending continued improvement in oxygen status. 05/25 Patient evaluated and examined at bedside. Was on 8 L nasal cannula when seen. Although 6-minute walk attempted patient had to be saturations even on 10 L when standing up. We will attempt to complete these as tolerated. Patient overall pretty discouraged very eager for discharge. If can tolerate 6 min walk better tomorrow maybe can discharge. Vitals/I&O Vitals/I&O: Vital Signs Date Time Temp Pulse Resp B/P (MAP) Pulse Ox O2 Delivery O2 Flow Rate FiO2 05/25/21 10:00 86 118/74 05/25/21 08:00 Nasal Cannula 8.0 10/21/21 07:00 97.4 30 92 97.4 I & O 05/24/21 05/24/21 05/25/21 15:00 23:00 07:00 Intake Total 200 ml Output Total 400 ml 250 ml 250 ml Balance -400 ml -50 ml -250 ml Physical Exam General: Alert, Oriented X3, Cooperative Heart: Regular rate, Normal S1, Normal S2 Lungs: Crackles Abdomen: Normal bowel sounds, Soft, No tenderness Extremities: No edema, Normal pulses, No tenderness/swelling Skin: No significant lesion Comment Review of Relevant I have reviewed the following items gisela (where applicable) has been applied. Justifications for Admission General Conditions Poss Metaboilic Acidosis?: Yes Justification for admission: Patient has tachycardia (> 100 beats per minute) or hypotension (SBP < 90 mm Hg) leading to inadequate systemic perfusion as indicated by metabolic acidosis with arterial pH of less than 7.35. Other Justification DAYSI HAMEED MD May 25, 2021 12:10
[2021-05-25 15:00] VITALS: BP 114/62
[2021-05-25 19:56] VITALS: BP 135/73
[2021-05-25 23:41] VITALS: BP 121/71
[2021-05-26 03:16] VITALS: BP 124/76
[2021-05-26] MEDS: HEPARIN for SUB-Q USE 5,000 UNIT/ML VIAL. SQ SCH ×2 (05:53→14:16)
[2021-05-26 07:00] VITALS: BP 117/73
[2021-05-26] MEDS: THIAMINE 100 MG TABLET. PO SCH (09:09)
[2021-05-26] MEDS: ZINC SULFATE 220 MG CAPSULE. PO SCH (09:09)
[2021-05-26] MEDS: DEXAMETHASONE SOD PHOS 4 MG/ML VIAL IVP SCH (09:10)
[2021-05-26] MEDS: BENZONATATE 100 MG CAPSULE. PO SCH ×2 (09:10→14:14)
[2021-05-26] MEDS: ASCORBIC ACID 1,000 MG TABLET PO SCH (09:10)
[2021-05-26 11:00] VITALS: BP 125/65
--- NOTE | 2021-05-26 11:54 | NUR ---
SW following. Discussed with RN, awaiting repeat 6 minute walk. Pt wanting to go home. LUIS A will continue to follow. Addendum: 05/26/21 at 1409 by VIANNEY GUNN 6 minute walk complete. Needing 3L with rest, 6L with exertion. Referral faxed to [email or web address], awaiting approval to give tank.
[2021-05-26] MEDS ORDERED: DEXA6TAB6 PO (13:29)
[2021-05-26] MEDS ORDERED: ALBU8HFA INH (13:29)
[2021-05-26] MEDS ORDERED: BENZ-8 PO (13:29)
--- NOTE | 2021-05-26 13:33 | PDOC3 ---
[facility]-Discharge Summary Date of Admission: Date of Admission: May 20, 2021 Date of Discharge: Date of Discharge: May 26, 2021 Admission Diagnosis: Problems: (1) COVID-19 (2) Acute respiratory failure with hypoxia Discharge Diagnosis: Discharge Diagnosis: Same Hospital Course: Hospital Course: Chief Complaint A/P: COVID-19 - Severe case, finished remdesivir, decadron, O2 supportive care.) Acute respiratory failure with hypoxia - due to COVID 19, treatment as above. add IS and albuterol MDI AMEYA - likely vasomotor nephropathy from COVID 19 SIRS - HR and RR elevated consistent with sepsis due to COVID 19, given fluids and antivirals HTN - hold HCTZ for AMEYA, cont amlodipine FEN - General diet PPX - lovenox FULL CODE Dispo - inpatient History of Present Illness History of Present Illness Mr Yadav is a 51-year-old male w/ PMHx HTN who presented to [facility] in [place], [place] for progressive shortness of breath, cough and dyspnea on exertion. He tested positive for Covid 19 on 05/11/2021 after experiencing a cough and shortness of breath. He works for [employer], does not know about any known exposures. Symptoms were as above and for 7 days was staying at home on quarantine but his became concerned due to worsening dyspnea and feelings of weakness and malaise with loss of appetite. Vitals obtained concerning for hypoxia 73% on room air, tachypnea and tachycardia Supplemental oxygen provided, patient continuing to require 6 L oxygen via nasal cannula to maintain saturations greater than 90% IV antibiotics and IV dexamethasone administered WBC 6.6, Hb 14.3, platelets 207, NA 140, K4, BUN 33, CR 2.1, glucose 102, calcium 8.7, lactate 1.2, bilirubin 0.6, AST 39, ALT 27, alkaline phosphatase 51, troponin 0, albumin 3.4 chest radiograph with hazy and patchy airspace disease throughout bilateral lungs, suspicious for viral or atypical pneumonia. CTPA had suboptimal contrast bolus, no PE noted. Bilateral parenchymal opacities as well as mediastinal and hilar lymphadenopathy. EKG ordered and interpreted by myself at 1118 hrs. as sinus rhythm at 98 bpm, unremarkable intervals, no axis deviation, T wave inversion noted in lead aVF otherwise no concerning findings, no STEMI Attempts were made to admit patient to [facility] for ICU status but this request was declined by hospitalist. Transferred to [facility] for further care. Afebrile overnight. Creatinine improved to 1.6. Symptomatically having diar riya and some nausea otherwise has a good appetite. HbA1c returned 6.3. O2 requirements increased to 9 L/min with O2 saturations 91%. He strenuously requesting to leave advised the his O2 needs are far too high for this to be accommodated. With creatinine and transaminase elevation he is not a candidate for Tocilizumab or baricitinib. We will continue daily labs and wean O2 as tolerated. Continue standard COVID-19 treatment with Decadron and remdesivir. 05/22 Patient evaluated and examined at bedside. He said he was doing well. Says he was not feeling very short of breath. Was at that time on 10 L nasal cannula was complaining for like he was fighting the oxygen.? He wanted to try seeing how he would do breathing on his own thus turned off his oxygen and he desaturated into the 70s pretty quickly. Turned his oxygen back on to 10 L and he was back saturating 92 within a few minutes. Will check into tocilizumab candidacy. Otherwise continue COVID treatment. 05/23 Patient evaluated examined at bedside. He remains on 12 L nasal cannula. Still endorses he really did not feel much short of breath but again desaturates easil y when oxygen turned down. Continue with current Covid treatment. 1 more day of remdesivir. At least 5-6 more days of dexamethasone. Weaning oxygen as tolerated 05/24 Patient evaluated examined at bedside. He was resting in bed seems a bit discouraged with her entire situation. was able to turn oxygen from 11 to 8 L. While I remained on the unit he maintain oxygen saturations in the 90s. We will continue weaning as tolerated throughout today. Will order 6-minute walk for tomorrow morning in anticipation of possible discharge pending continued improvement in oxygen status. 05/25 Patient evaluated and examined at bedside. Was on 8 L nasal cannula when seen. Although 6-minute walk attempted patient had to be saturations even on 10 L when standing up. We will attempt to complete these as tolerated. Patient overall pretty discouraged very eager for discharge. If can tolerate 6 min walk better tomorrow maybe can discharge. 05/26 Patient evaluated examined at bedside. Was on 3 L nasal cannula when evaluated. Did well with a 6-minute walk this morning 3 L at rest 6 with exertion. Will discharge home today. Patient very eager for discharge. Discussed with him taking things easy for at least the next week and activity as tolerated. Inquired about the Covid vaccine, I told him to wait at least 6 weeks for this. Discharge home today. I spent approximately 35 minutes in the planning coordinating and [id number] with the patient in regards to discharge. Disposition: Disposition/Orders: D/C to Home Activity: Activity: Resume previous activity Diet: Diet: Regular Medications: Home Meds Active Scripts Dexamethasone (Decadron) 6 Mg Tablet, 6 MG PO DAILY for COVID for 5 Days, #5 TAB Prov:DAYSI HAMEED MD 05/26/21 Benzonatate (BENZONATATE) 100 Mg Capsule, 100 MG PO TID PRN PRN for COUGH for 30 Days, #30 CAP Prov:DAYSI HAMEED MD 05/26/21 Albuterol Sulfate (Ventolin Hfa) 8 Gm Hfa.aer.ad, 1 PUFF INH PRN Q4HRS PRN for Shortness of breath for 30 Days, #1 INHALER Prov:DAYSI HAMEED MD 05/26/21 Reported Medications Hydrochlorothiazide (HYDROCHLOROTHIAZIDE TABLET ) 25 Mg Tablet, 25 MG PO DAILY for DIURETIC, TAB 0 Refills 05/19/21 Amlodipine Besylate (AMLODIPINE BESYLATE) 10 Mg Tablet, 10 MG PO DAILY for htn, TAB 05/19/21 Scheduled Amlodipine Besylate (Amlodipine Besylate), 10 MG PO DAILY, (Reported) Dexamethasone (Decadron), 6 MG PO DAILY Hydrochlorothiazide (Hydrochlorothiazide Tablet ), 25 MG PO DAILY, (Reported) Scheduled PRN Albuterol Sulfate (Ventolin Hfa), 1 PUFF INH PRN Q4HRS PRN for Shortness of breath Benzonatate (Benzonatate), 100 MG PO TID PRN PRN for COUGH Justicifation of Admission Dx: Justifications for Admission: Justification of Admission Dx: Yes (covid pneumonia) DAYSI HAMEED MD May 26, 2021 13:33
--- NOTE | 2021-05-26 15:18 | NUR ---
Discharge Note: TIO DAVIS Discharge instructions and discharge home medications reviewed with Patient and a copy given. All questions have been answered and understanding verbalized. The following instructions and handouts were given: follow up instructions, medication education, oxygen education and a medardo melgar 21 home quarantine education Discontinued lines and drains: 20 guage left FA, tip intact. patient tolerated well. Patient discharged to home with self care via .
== END 2021-05-26 15:15 | disposition home or self-care (01) | DRG 871 ==
LOC: 5 NORTH 19:00
PROVIDERS: ADMIT Internal Medicine; ATTEND Internal Medicine
PROC: XW033E5 Introduction of Remdesivir Anti-infective into Peripheral Vein, Percutaneous Approach, New Technology Group 5 (ICD-10-PCS; 2021-05-20)
PROC: 5A0935A Assistance with Respiratory Ventilation, Less than 24 Consecutive Hours, High Flow/Velocity Cannula (ICD-10-PCS; 2021-05-25)
PROC: 5A0935A Assistance with Respiratory Ventilation, Less than 24 Consecutive Hours, High Flow/Velocity Cannula (ICD-10-PCS; principal; 2021-05-26)
DX: A41.89 Other specified sepsis (principal); U07.1 COVID-19; J12.82 Pneumonia due to coronavirus disease 2019; N17.0 Acute kidney failure with tubular necrosis; J96.01 Acute respiratory failure with hypoxia; I10 Essential (primary) hypertension; Z82.49 Family history of ischemic heart disease and other diseases of the circulatory system
CPT/HCPCS: 36415; 71045; 80053; 82962; 83036; 85007; 85025; 85379; 86140; 94618; G0238; J1100; J1644; J2405; J7030; J7050; G0378